=== PATIENT | male | born 2000 | race Caucasian/White ===

== ENCOUNTER 2021-10-10 12:58 | Emergency (ER) | payer BC, SELFPAY ==
[2021-10-10 13:41] VITALS: BP 123/72; PULSE 77; RESP 18; TEMP 36.9; O2SAT 99
--- NOTE | 2021-10-10 14:40 | ED.GENADULT ---
HPI - General Adult General Chief complaint: Nausea/Vomiting/Diarrhea Stated complaint: flu/cold/fever Source: patient and RN notes reviewed Limitations: no limitations History of Present Illness HPI narrative: The unvaccinated patient, non-smoker/nondrinker, short presents with a shorter 1 day history of fever to 102.4 associated with emesis x1, myalgias with headache, congestion and cough. No diarrhea; no loss of taste/smell, SOB, wheezing/sneezing. CP. [id number] testing for Covid is early/strongly positive and patient advised Related Data Allergies Allergy/AdvReac Type Severity Reaction Status Date / Time No Known Allergies Allergy Verified 10/10/21 13:40 Review of Systems Review of Systems: General/Constitutional: No weight loss, REPORTS possible fever Eyes: N0: Redness,discharge Ears/Nose/Throat: No: Epistaxis,ear discharge Respiratory: Denies: Hemoptysis Gastrointestinal: No rectal bleeding; REPORTS vomiting Skin: No Lumps, eruption Neurologic: No Focal Weakness,Sz Hematologic: Denies: Petechiae/Purpura Psychiatric: No: Suicida ideationl All Other Systems: Reviewed and Negative PMFSH Comments At time of signature, agree with nursing past medical, surgical, social and family history. There is no relevant family history pertinent to the presenting complaint Exam Narrative: General Appearance: Flush/ sl febrile appearing EYE: PERRLA, Conjunctiva clear Ears: Auditory canal normal, TM normal Nose: Rhinorrhea, Mucousal erythema Mouth/Throat: MM moist, Uvula midline, Pharyngeal erythema Neck: Supple, No adenopathy Respiratory: No respiratory distress, Breath sounds equal, Clear to auscultation Cardiovascular: RRR, No JVD GI: Soft, nontender Musculoskeletal: Non tender, Normal strength Skin: Warm, Dry Neurological: A&O x3, CN II-XII intact Psychiatric: Normal mood, Normal affect Course Vital Signs Vital signs: Vital Signs Temperature 98.4 F 10/10/21 13:41 Pulse Rate 77 10/10/21 13:41 Respiratory Rate 18 10/10/21 13:41 Blood Pressure 123/72 10/10/21 13:41 Pulse Oximetry 99 10/10/21 13:41 Temperature 98.4 F 10/10/21 13:41 Pulse Rate 77 10/10/21 13:41 Respiratory Rate 18 10/10/21 13:41 Blood Pressure 123/72 10/10/21 13:41 Pulse Oximetry 99 10/10/21 13:41 Medical Decision Making Vital Signs Vital Signs: Vital Signs Temperature 98.4 F 10/10/21 13:41 Pulse Rate 77 10/10/21 13:41 Respiratory Rate 18 10/10/21 13:41 Blood Pressure 123/72 10/10/21 13:41 Pulse Oximetry 99 10/10/21 13:41 Temperature 98.4 F 10/10/21 13:41 Pulse Rate 77 10/10/21 13:41 Respiratory Rate 18 10/10/21 13:41 Blood Pressure 123/72 10/10/21 13:41 Pulse Oximetry 99 10/10/21 13:41 Lab Data Labs: Lab Results 10/10/21 Range/Units 14:39 POC SARS CoV-2 Ag Pending Influenza A Screen Negative Reference Range: Negative Influenza B Screen Negative Reference Range: Negative Discharge Plan Discharge Clinical Impression: COVID-19 Patient Disposition: Home, Self-Care Condition: Stable Instructions: COVID-19 (Coronavirus Disease 2019) (ED) Additional Instructions: Isolate yourself, and inform close contacts who then should quarantine Take supplement vitamins D, B, C, zinc and baby aspirin daily Call your PMD for consideration for antivirals, monoclonal antibodies Consider getting pulse ox and return for walking pulse oximetry <93% COnsider reviewing youTube 'If you get covid Dr Grajeda Consider allow low fever, then begin treat for fevers > 102 with tylenol You may use OTC preparations like Flonase, cough syrups, etc Prescriptions: New ondansetron 4 mg tablet,disintegrating 4 mg PO Q8H Qty: 10 RF: 0 benzonatate 100 mg capsule 100 mg PO TID PRN (Reason: cough) Qty: 20 RF: 2 azel
== END 2021-10-10 14:59 | disposition home or self-care (01) ==
PROVIDERS: Emergency Provider Emergency Medicine
DX: U07.1 COVID-19 (principal)
CPT/HCPCS: 87426; 87804; 99213; C9803; G0463

== ENCOUNTER 2021-10-10 20:39 | Emergency (ER) | payer BC, SELFPAY ==
[2021-10-10 20:42] VITALS: BP 137/71; PULSE 87; RESP 17; TEMP 37.3; O2SAT 98
--- NOTE | 2021-10-10 20:49 | PC.NURSE ---
Pt to desk reporting that the reason he came was because he had a fever but in triage he no longer has a fever. Pt will be leaving at this time. Pt encouraged to return if symptoms return. Pt ambulatory in no obvious distress.
== END 2021-10-10 20:49 | disposition left against medical advice (07) ==
LOC: ANHED 20:53
DX: R50.9 Fever, unspecified (principal)
CPT/HCPCS: 99199

== ENCOUNTER 2021-10-11 08:57 | Emergency (ER) | payer BC, SELFPAY ==
--- NOTE | ~2021-10-11 | XR_ITS ---
EXAMINATION: XR chest 1V portable DATE: 10/11/2021 10:02 INDICATION: Cough. TECHNIQUE: A single frontal view of the chest was obtained on 2 radiographs. COMPARISON: None. FINDINGS: The chest demonstrates clear lungs without pneumonia, pleural effusion, or pneumothorax. Th e heart size is normal. IMPRESSION: 1. No acute cardiopulmonary disease. Reviewed, dictated and finalized at location [facility]. [facility]
[2021-10-11 10:10] VITALS: BP 128/72; PULSE 79; RESP 17; TEMP 36.7; O2SAT 98
[2021-10-11] MEDS: SODIUM CHLORIDE 0.9% IV 1,000 ML 999 ML IV CONT (10:25)
--- NOTE | 2021-10-11 10:27 | ED.NAVMDI ---
HPI - Nausea/Vomiting/Diarrhea General Chief complaint: Nausea/Vomiting/Diarrhea Stated complaint: N/V/D, covid + Time Seen by Provider: 10/11/21 10:09 Source: patient Mode of arrival: ambulatory Limitations: no limitations History of Present Illness HPI Narrative: This is a 20 year old male that presents to the ER for feeling unwell over the last couple of days. Reports he tested positive for COVID yesterday. Reports fever, nausea, vomiting, diarrhea, headache, sore throat and a mild cough. He is partially vaccinated. Denies chest pain or shortness of breath. Related Data Allergies Allergy/AdvReac Type Severity Reaction Status Date / Time No Known Allergies Allergy Verified 10/11/21 10:13 Review of Systems Review of Systems: CONSTITUTIONAL: Reports fever ENT: Reports sore throat CARDIOVASCULAR: Denies chest pain RESPIRATORY: Reports cough. Denies dyspnea. GASTROINTESTINAL: Reports nausea, vomiting and diarrhea. Denies abdominal pain NEUROLOGIC: Reports headache All systems reviewed & are unremarkable except as noted in HPI and below PMFSH Past Medical History Medical History (Updated 10/11/21 @ 11:50 by Nicolle To PA-C) COVID-19 Social History Social History (Updated 10/11/21 @ 10:30 by Nicolle To PA-C) Substance use: never Exam Narrative: GENERAL: Well-appearing, well-nourished, and in no acute distress. HEAD: Normocephalic, atraumatic. EYES: EOMI. ENT: Nares clear, no rhinorrhea or epistaxis. Mucous membranes moist. Mild erythema the posterior oropharynx, without tonsillar hypertrophy, exudate or other lesions. Bilateral TMs pearly jacob non-bulging NECK: Supple. No adenopathy or masses. CHEST: Clear to auscultation. No respiratory distress. No wheezes rales or rhonchi HEART: Regular rate and rhythm. No murmur heard. Normal peripheral pulses. ABDOMEN: Soft, nontender, nondistended, normal active bowel sounds. EXTREMITIES: Normal range of motion. No edema. SKIN: Warm, dry, no rash. NEURO: No focal deficits. Alert and oriented x3. PSYCH: Normal mood and affect Course Vital Signs Vital signs: Vital Signs Temperature 98.1 F 10/11/21 10:10 Pulse Rate 79 10/11/21 10:10 Respiratory Rate 17 10/11/21 10:10 Blood Pressure 128/72 10/11/21 10:10 Pulse Oximetry 98 10/11/21 10:10 Temperature 98.1 F 10/11/21 10:10 Pulse Rate 79 10/11/21 10:10 Respiratory Rate 17 10/11/21 10:10 Blood Pressure 128/72 10/11/21 10:10 Pulse Oximetry 98 10/11/21 10:10 MDM - Nausea/Vomiting/Diarrhea MDM Narrative Medical decision making narrative: Patient presents to the emergency department for cold symptoms ongoing over the last couple of days. Diagnosed with coronavirus yesterday. He is afebrile and nontoxic-appearing. His vitals are normal. Oxygen saturation has remained normal on room air. CBC and metabolic panel without concerning findings. Lipase is normal. UA without evidence of infection. Chest x-ray without acute cardiopulmonary abnormality. Patient hydrated and given antiemetic with relief. He was instructed on continued care of viral infection. He is to follow-up with primary care doctor. He was given warnings to return to the ER Lab Data Attestation: I reviewed the patient's lab results. Result diagrams: 10/11/21 10:26 10/11/21 10:26 Labs: Lab Results 10/11/21 10/11/21 10/11/21 Range/Units 10:26 10:26 10:26 WBC 5.8 (4.5-10.0) K/mm3 RBC 5.29 (4.6-6.20) M/mm3 Hgb 16.7 (14.0-18.0) g/dL Hct 47.9 (42.0-52.0) % MCV 90.5 (80-100) fl MCH 31.6 (26-34) pg MCHC 34.9 (32-36) g/dl RDW 12.9 (11.5-14.5) % Plt Count 177 (150-375) k/mm3 MPV 10.3 (7.4-10.4) fl Immature Gran % (Auto) 0.2 (0-0.5) % Neut % (Auto) 61.7 (45.5-73.1) % Lymph % (Auto) 22.0 (18.3-44.2) % [place] % (Auto) 15.1 H (2.6-8.5) % Eos % (Auto) 0.5 (0-4.4) % Baso % (Auto) 0.5 (0.2-1.2) % Lymph # (Au
[2021-10-11 10:33] LABS: Basophils Percent Auto 0.5 % (0.2-1.2); Eosinophils Percent Auto 0.5 % (0-4.4); Hematocrit 47.9 % (42.0-52.0); Hemoglobin 16.7 g/dL (14.0-18.0); Immature Granulocyte Absolute 0.01 K/mm3 (0.00-0.031); Immature Granulocyte Percent A 0.2 % (0-0.5); Lymphocytes Absolute Auto 1.28 K/mm3 (0.9-3.2); Mean Corpuscular HGB Conc 34.9 g/dl (32-36); Mean Corpuscular Hemoglobin 31.6 pg (26-34); Mean Corpuscular Volume 90.5 fl (80-100); Mean Platelet Volume 10.3 fl (7.4-10.4); Monocytes Absolute Auto 0.9 K/mm3 (0.1-0.6); Monocytes Percent Auto 15.1 % (2.6-8.5); Neutrophils Absolute Auto 3.6 K/mm3 (1.3-6.7); Neutrophils Percent Auto 61.7 % (45.5-73.1); Platelet Count Result 177 k/mm3 (150-375); Red Blood Count 5.29 M/mm3 (4.6-6.20); Red Cell Distribution Width 12.9 % (11.5-14.5); White Blood Count 5.8 K/mm3 (4.5-10.0)
[2021-10-11 10:36] LABS: Add Urine Microscopic? YES; Appearance Urine Clear (Clear); Bilirubin Urine Negative (Negative); Blood Urine Negative (Negative); Color Urine Yellow (Yellow); Glucose Urine UA Negative (Negative); Ketones Urine Negative (Negative); Leukocyte Esterase Ur Negative LEU/UL (Negative); Mucus Urine Rare /lpf; Nitrate Urine Negative (Negative); Protein Urine Negative (Negative); RBC Urine 0-2 /hpf (0-2); Specific Grav Ur 1.018 (1.001-1.035); Urobilinogen Urine Negative mg/dL (<2.0); WBC Urine 0-3 /hpf
[2021-10-11 10:44] LABS: Alanine Aminotransferase 24 U/L (4-50); Albumin Level 4.4 g/dL (3.5-5.1); Alkaline Phosphatase 92 U/L (38-126); Anion Gap 10 mmol/L (8-16); Aspartate Amino Transferase 38 U/L (17-59); Blood Urea Nitrogen 17 mg/dL (9-20); Calcium 8.8 mg/dL (8.4-10.2); Carbon Dioxide 28 mmol/L (22-30); Chloride 100 mmol/L (98-107); Estimated CRCL calculation 106 ml/min; Estimated Glomerular Filt Rate > 60; Glucose 115 mg/dL (65-110); Lipase 79 U/L (23-300); Potassium 3.8 mmol/L (3.4-5.0); Sodium 138 mmol/L (137-145)
[2021-10-11] MEDS: FAMOTIDINE 20 MG/2 ML VIAL IV PUSH (10:51)
[2021-10-11] MEDS: IBUPROFEN IV 400 MG in SODIUM CHLORIDE 0.9% IV 100 ML 200 MG IVPB (10:52)
[2021-10-11] MEDS: ONDANSETRON INJ 4 MG/2 ML VIAL IV PUSH (10:52)
[2021-10-11 11:21] LABS: Monoscreen Negative (Negative); Negative Monotest Control Negative (Negative); Positive Monotest Control Positive (Positive)
== END 2021-10-11 12:01 | disposition home or self-care (01) ==
PROVIDERS: Physician Assistant; Emergency Provider Emergency Medicine
DX: U07.1 COVID-19 (principal)
CPT/HCPCS: 36415; 71045; 80053; 81001; 83690; 85025; 86308; 96365; 96375; 99284; J1741; J2405; J7030

== ENCOUNTER 2021-10-18 16:53 | Emergency (ER) | payer BC, SELFPAY ==
[2021-10-18 17:01] VITALS: BP 143/85; PULSE 83; RESP 16; TEMP 36.6; O2SAT 100
--- NOTE | 2021-10-18 17:32 | ED.GENADULT ---
HPI - General Adult General Chief complaint: Epistaxis Stated complaint: nose bleeds Time Seen by Provider: 10/18/21 17:16 Source: patient and RN notes reviewed Mode of arrival: ambulatory Limitations: no limitations History of Present Illness HPI narrative: Patient presents today complaining of intermittent epistaxis from the right nare since yesterday. Patient had one episode yesterday and 4 today. The lasted for short periods of time and hemostasis was achieved after ice and pinching of the nose. He does not take any blood thinners or aspirin. States the first episode of epistaxis initially started while he was lifting weights. MD complaint: Epistaxis Related Data Home Medications Medication Instructions Recorded Confirmed No Home Medications 10/18/21 10/18/21 Allergies Allergy/AdvReac Type Severity Reaction Status Date / Time No Known Allergies Allergy Verified 10/18/21 17:00 Review of Systems Review of Systems: CONSTITUTIONAL: Denies body aches, fever, chills, or sweats. EYES: Denies visual changes, redness, or discharge. ENT: Denies rhinorrhea, congestion, sore throat, or otalgia.+ Epistaxis CARDIOVASCULAR: Denies chest pain, palpitations, or edema. RESPIRATORY: Denies cough or dyspnea. GASTROINTESTINAL: Denies abdominal pain, nausea, vomiting, or diarrhea. GENITOURINARY: Denies dysuria or hematuria. SKIN: Denies rash, itching, or wounds. MUSCULOSKELETAL: Denies back pain, joint pain, or myalgia. NEUROLOGIC: Denies headache, numbness, tingling, or weakness. PSYCH: Denies depression or anxiety. PMFSH Past Medical History Medical History COVID-19 Social History Social History Substance use: never Comments At time of signature, I have reviewed and agree with nursing past medical, surgical, social and family history unless otherwise noted. Please see nursing chart for further information. There is no relevant family history pertinent to the presenting complaint Exam Narrative: GENERAL: Well-appearing, well-nourished, and in no acute distress. HEAD: Normocephalic, atraumatic. EYES: EOMI. No redness or drainage. Conjunctivae normal. ENT: Mucous membranes pink and moist. Nares clear. No source of epistaxis was appreciated in either nare. Turbinates normal. No active epistaxis. No rhinorrhea. NECK: Normal AROM. Supple. No lymphadenopathy. CHEST: No respiratory distress. EXTREMITIES: Normal range of motion. No edema. SKIN: Warm, dry, no rash. Capillary refill normal. Normal skin turgor. NEURO: No focal deficits. Alert and oriented x3. Gait steady. PSYCH: Normal affect. No signs of depression or anxiety. Course Course Level of Care: Express Care Visit Vital Signs Vital signs: Vital Signs Temperature 98 F 10/18/21 17:01 Pulse Rate 83 10/18/21 17:01 Respiratory Rate 16 10/18/21 17:01 Blood Pressure 143/85 H 10/18/21 17:01 Pulse Oximetry 100 10/18/21 17:01 Temperature 98 F 10/18/21 17:01 Pulse Rate 83 10/18/21 17:01 Respiratory Rate 16 10/18/21 17:01 Blood Pressure 143/85 H 10/18/21 17:01 Pulse Oximetry 100 10/18/21 17:01 Reviewed. Pt has been instructed to follow up with his PCP regarding his elevated blood pressure today. Medical Decision Making Differential Diagnosis Differential Diagnosis: Epistaxis Vital Signs Vital Signs: Vital Signs Temperature 98 F 10/18/21 17:01 Pulse Rate 83 10/18/21 17:01 Respiratory Rate 16 10/18/21 17:01 Blood Pressure 143/85 H 10/18/21 17:01 Pulse Oximetry 100 10/18/21 17:01 Temperature 98 F 10/18/21 17:01 Pulse Rate 83 10/18/21 17:01 Respiratory Rate 16 10/18/21 17:01 Blood Pressure 143/85 H 10/18/21 17:01 Pulse Oximetry 100 10/18/21 17:01 Critical Care Time Critical Care Time Critical Care Time: No Discharge Plan Discharge Clinical Impression
== END 2021-10-18 17:41 | disposition home or self-care (01) ==
PROVIDERS: Emergency Provider Nurse Practitioner
DX: R04.0 Epistaxis (principal); Z86.16 Personal history of COVID-19
CPT/HCPCS: 99211; G0463